=== PATIENT | male | born 1965 | race Caucasian/White ===

== ENCOUNTER 2017-06-21 23:59 | Inpatient (IN) | payer SELFPAY ==
[~2017-06-21] VITALS: Ht 175.3 cm; Wt 93.7 kg
[2017-06-22] VITALS (10 sets, daily range): BP systolic 138–186; BP diastolic 87–112; Ht 175.3 cm; Wt 93.7 kg
[2017-06-22 01:15] LABS: BASOPHIL % 0.5 % (0-2); PLATELET COUNT 242 x10^3mcL (130-400); RED CELL DISTRIBUTION WIDTH 13.6 % (11.5-14.5)
[2017-06-22 01:22] LABS: CALCIUM 8.4 mg/dL (8.5-10.1); CARBON DIOXIDE 28.4 mmol/L (21-32); CHLORIDE SERUM 106 mmol/L (98-107); GFR1 > 60 mL/min; GLUCOSE SERUM 112 mg/dL (74-106); POTASSIUM SERUM 3.5 mmol/L (3.5-5.1); SODIUM SERUM 140 mmol/L (136-145)
[2017-06-22] MEDS ORDERED: COZAAR50 M1 PO (01:25)
[2017-06-22] MEDS ORDERED: AMLODIPINE BESYL5 M2 PO (01:26)
[2017-06-22 01:27] LABS: ALBUMIN 3.6 g/dL (3.4-5.0); ALKALINE PHOSPHATASE 106 U/L (46-116); ALT/SGPT 49 U/L (16-63); AST/SGOT 32 U/L (15-37); TOTAL PROTEIN, SERUM 7.5 g/dL (6.4-8.2)
[2017-06-22 04:28] LABS: T3 TOTAL 1.26 ng/mL
[2017-06-22 04:34] LABS: MAGNESIUM 2.3 mg/dL (1.8-2.4); PHOSPHOROUS 3.3 mg/dL (2.5-4.9)
[2017-06-22 04:36] LABS: CHOLESTEROL/HDL RATIO 4.6
[2017-06-22 04:41] LABS: FREE T4 1.01 ng/dL (0.76-1.46); FREE THYROXINE INDEX 2.8 ug/dL (1.4-4.5); T4(THYROXINE) 7.7 ug/dL (4.7-13.3)
[2017-06-23 05:45] VITALS: BP 140/98
[2017-06-23 06:32] LABS: CALCIUM 8.2 mg/dL (8.5-10.1); CARBON DIOXIDE 27.1 mmol/L (21-32); CHLORIDE SERUM 104 mmol/L (98-107); GFR1 > 60 mL/min; GLUCOSE SERUM 116 mg/dL (74-106); POTASSIUM SERUM 3.6 mmol/L (3.5-5.1); SODIUM SERUM 138 mmol/L (136-145)
[2017-06-23 07:01] LABS: BASOPHIL % 0.4 % (0-2); PLATELET COUNT 237 x10^3mcL (130-400); RED CELL DISTRIBUTION WIDTH 13.1 % (11.5-14.5)
[2017-06-23] MEDS ORDERED: LIPI10 PO (07:28)
[2017-06-23] MEDS ORDERED: METOPROLOL TART25 M1 PO ×2 (07:29→12:55)
[2017-06-23] MEDS ORDERED: NOR5 PO (07:30)
[2017-06-23] MEDS ORDERED: COZ50 PO (07:30)
[2017-06-23] MEDS ORDERED: ECO81 PO (07:30)
[2017-06-23 09:18] VITALS: BP 173/106
[2017-06-23 10:12] LABS: microscopic required? NO
[2017-06-23 10:32] LABS: UA SPECIFIC GRAVITY 1.025 (1.005-1.035); urine erythrocyte NEGATIVE (NEGATIVE)
[2017-06-23 12:40] VITALS: BP 148/98
[2017-06-23 16:50] VITALS: BP 148/98
[2017-06-24 09:25] LABS: AMPHETAMINE QUAL UR NONE DETECTED (NEG <=1000)
== END 2017-06-23 17:45 | disposition home or self-care (01) | DRG 206 ==
LOC: ED 23:59 → DU 06-22 02:44
PROVIDERS: Emergency Medicine; Family Medicine
DX: M94.0 Chondrocostal junction syndrome [Tietze] (principal); I10 Essential (primary) hypertension; Z82.49 Family history of ischemic heart disease and other diseases of the circulatory system; I16.0 Hypertensive urgency; R73.03 Prediabetes; E78.5 Hyperlipidemia, unspecified; K21.9 Gastro-esophageal reflux disease without esophagitis
CPT/HCPCS: 83880; 84439; J2405; J3490; J7030; Q0092

== ENCOUNTER 2019-08-23 21:07 | Emergency (ER) | payer SELFPAY ==
[~2019-08-23] VITALS: Ht 175.3 cm; Wt 97.5 kg
[~2019-08-23 21:07] MED LIST: AMLODIPINE BESYL5 M2 PO; COZ50 PO; COZAAR50 M1 PO; ECO81 PO; LIPI10 PO; METOPROLOL TART25 M1 PO; NOR5 PO
[2019-08-23 21:17] VITALS: Ht 175.3 cm; Wt 97.5 kg
[2019-08-23 23:29] VITALS: BP 144/89
== END 2019-08-23 23:29 | disposition home or self-care (01) ==
LOC: ED 21:07
DX: I10 Essential (primary) hypertension (principal); G44.209 Tension-type headache, unspecified, not intractable
CPT/HCPCS: J0780; J1885

== ENCOUNTER 2019-08-25 22:18 | Emergency (ER) | payer SELFPAY ==
[~2019-08-25] VITALS: Ht 175.3 cm; Wt 97.5 kg
[2019-08-25 23:12] LABS: BASOPHIL % 0.4 % (0-2); PLATELET COUNT 234 x10^3mcL (130-400); RED CELL DISTRIBUTION WIDTH 13.5 % (11.5-14.5)
[2019-08-25 23:27] LABS: CALCIUM 8.4 mg/dL (8.5-10.1); CARBON DIOXIDE 29.4 mmol/L (21-32); CHLORIDE SERUM 102 mmol/L (98-107); CREATININE SERUM 1.1 mg/dL (0.7-1.3); GFR1 > 60 mL/min; GLUCOSE SERUM 115 mg/dL (74-106); POTASSIUM SERUM 3.7 mmol/L (3.5-5.1); SODIUM SERUM 138 mmol/L (136-145)
[2019-08-25 23:32] LABS: ALBUMIN 3.4 g/dL (3.4-5.0); ALKALINE PHOSPHATASE 108 U/L (46-116); ALT/SGPT 45 U/L (16-63); AST/SGOT 25 U/L (15-37); BILIRUBIN TOTAL 0.2 mg/dL (0.20-1.00); TOTAL PROTEIN, SERUM 7.5 g/dL (6.4-8.2)
[2019-08-26 00:09] VITALS: BP 150/85
== END 2019-08-26 00:09 | disposition home or self-care (01) ==
LOC: ED 22:18
PROVIDERS: Emergency Medicine
DX: R51 Headache (principal); I10 Essential (primary) hypertension
CPT/HCPCS: J1885; J2765